=== PATIENT | male | born 1990 | race Caucasian/White ===

== ENCOUNTER 2017-01-20 02:58 | Emergency (ER) | payer BC, MEDICAID ==
[2017-01-20] MEDS ORDERED: Bacitracin Oint 1 GM U/D Packet TOP ONE (03:17)
[2017-01-20] MEDS ORDERED: Lidocaine 1% with EPINEPHrine 1:100,000 20 ML MDV INJECT ONE (03:17)
--- NOTE | 2017-01-20 04:57 | EDM.PDOC ---
ED HPI GENERAL MEDICAL PROBLEM - General Chief Complaint: Laceration Stated Complaint: LEFT ARM PAIN Time Seen by Provider: 01/20/17 03:06 Source of Information: Reports: Patient History Limitations: Reports: No Limitations - History of Present Illness INITIAL COMMENTS - FREE TEXT/NARRATIVE: HISTORY AND PHYSICAL: History of present illness: [27-year-old male presents to the emergency department complaining of laceration on the medial aspect of his left arm. For reasons that are unclear patient was sitting on a sink at 4 AM when it broke he fell and some broken porcelain lacerated his arm. He states his tetanus is up-to-date. He is able to use his elbow and move his wrist and hand normally. Small amount of bleeding. Review of systems: As per history of present illness and below otherwise all systems reviewed and negative. Past medical history: As per history of present illness and as reviewed below otherwise noncontributory. Surgical history: As per history of present illness and as reviewed below otherwise noncontributory. Social history: No reported history of drug or alcohol abuse. Family history: As per history of present illness and as reviewed below otherwise noncontributory. Physical exam: Well-appearing 27-year-old male alert and appropriate communicative and cooperative with an 8 cm superficial and subcutaneous laceration to the medial aspect of his left upper arm. No tendon or muscle involvement. Hemostatic. No gross contamination. No visible foreign body HEENT: Normocephalic, atraumatic, pupils normal and symmetrical, supple neck, no meningismus, normal color Lungs: Normal and symmetrical chest wall excursion bilateral with no tachypnea or increased work of breathing, grossly normal chest exam Heart: No tachycardia in triage Abdomen: Normal-appearing, nondistended, no visible mass or asymmetry Pelvis: Normal-appearing Genitourinary: Deferred Rectal exam: Deferred Extremities: Atraumatic, normal use and range of motion, no visible evidence of gross neurovascular compromise Neuro: Awake, alert, oriented. Normal and appropriate mental status. Cranial nerves grossly unremarkable. Motor function normal. Nonfocal neurologic exam. Diagnostics: [] Therapeutics: [Procedure, staple repair of 8 cm superficial and subcutaneous laceration medial aspect left upper arm. Patient lying on his stomach with his wrist down by his waist. One percent Lad[place] with epi was infused into the site of laceration. Wound was extensively irrigated with high-pressure jet sterile water irrigation by or. Closure performed with 10 piyush applied with good approximation and no complication. Patient tolerated well. Hemostatic, Dressing applied] Impression: [Laceration left upper arm Staple repair] Plan: [Signs and symptoms consistent with uncomplicated laceration. Staple repair performed after irrigation. Patient tolerated well no complications. He will follow-up with PCP in 2 days for wound check in 10 days for staple removal. Patient agrees with outpatient follow-up and strict return precautions given] Definitive disposition and diagnosis as appropriate pending reevaluation and review of above. Left Upper Arm Pain Score (Numeric/FACES): 8 - Related Data Allergies Allergy/AdvReac Type Severity Reaction Status Date / Time No Known Allergies Allergy Verified 01/20/17 03:25 Home Meds: Home Meds Dextroamphetamine/Amphetamine [Adderall] 0 01/20/17 [History] Emtricitabine/Tenofovir [Truvada 100 mg-150 mg Tablet] each PO DAILY 01/20/17 [ History] Raltegravir Potassium [Isentress] 0 DAILY 01/20/17 [History] Past Medical History Psychiatric History: Reports: ADHD Immunologic History: Reports: HIV - Infectious Disease History Infectious Disease History: Reports: HIV-Human Immunodeficiency Virus Social & Family History - Family History Family Medical History: Noncontributory - Tobacco Use Smoking Status *Q: Never Smoker - Caffeine Use Caffeine Use: Reports: None - Recreational Drug Use Recreational Drug Use: No ED ROS GENERAL - Review of Systems Review Of Systems: See Below (History of present illness) ED EXAM, SKIN/RASH Exam: See Below (History of present illness) Course - Vital Signs Last Recorded V/S: Last Vital Signs Temp 36.6 C 01/20/17 05:03 Pulse 74 01/20/17 05:03 Resp 20 01/20/17 05:03 BP 124/63 01/20/17 05:03 Pulse Ox 99 01/20/17 05:03 - Orders/Labs/Meds Meds: Medications Discontinued Medications Generic Name Dose Route Start Last Admin Trade Name Freq PRN Reason Stop Dose Admin Bacitracin 1 dose 01/20/17 03:17 01/20/17 04:13 Bacitracin Oint 1 Gm TOP 01/20/17 03:18 1 dose ONETIME ONE Administration Lidocaine/Epinephrine 20 ml 01/20/17 03:17 01/20/17 04:13 Xylocaine 1% With Epinephrine 1:100,000 INJECT 01/20/17 03:18 20 ml ONETIME ONE Administration Departure - Departure Time of Disposition: 04:54 Disposition: Home, Self-Care 01 Condition: Good Clinical Impression: Laceration of left upper arm - Discharge Information Instructions: Laceration Care, Adult Referrals: Sony Gonzales MD [Primary Care Provider] - Forms: ED Department Discharge Additional Instructions: Your laceration has been repaired with piyush. Follow-up with your doctor in 2 days for a wound check and in 10 days for staple removal. Take ibuprofen every 6 hours and Tylenol every 4 hours as needed for any discomfort. The aware of the possibility of occult foreign body in your wound. Do not sit on sinks in the future.
[2017-01-20 05:06] VITALS: BP 124/63
== END 2017-01-20 05:04 | disposition home or self-care (01) ==
LOC: MW.ED 02:58
DX: S41.112A Laceration without foreign body of left upper arm, initial encounter (principal); Z79.899 Other long term (current) drug therapy; W26.8XXA Contact with other sharp object(s), not elsewhere classified, initial encounter
CPT/HCPCS: 12004; 99282

== ENCOUNTER 2017-02-04 17:03 | Emergency (ER) | payer BC, MEDICAID ==
[2017-02-04 18:49] VITALS: BP 119/69
== END 2017-02-04 17:43 | disposition left against medical advice (07) ==
LOC: MW.ED 17:03
DX: Z53.21 Procedure and treatment not carried out due to patient leaving prior to being seen by health care provider (principal)

== ENCOUNTER 2019-01-03 14:13 | Emergency (ER) | payer MEDICAID ==
--- NOTE | 2019-01-03 14:25 | EDM.PDOC ---
ED HPI GENERAL MEDICAL PROBLEM - General Chief Complaint: Bite:Animal, Insect Stated Complaint: BEE IN EAR Time Seen by Provider: 01/03/19 14:16 Source of Information: Reports: Patient History Limitations: Reports: No Limitations - History of Present Illness INITIAL COMMENTS - FREE TEXT/NARRATIVE: History of present illness: []Patient arrived by ambulance after having a bug burrowing into his left ear. He states he's been trying to get it out. He is HIV positive, denies using any drugs and states that he is not suicidal and does not feel that anyone is trying to harm him. He feels safe at home, but states his neighbors are inconsiderate. Review of systems: As per history of present illness and below otherwise all systems reviewed and negative. Past medical history: As per history of present illness and as reviewed below otherwise noncontributory. Surgical history: As per history of present illness and as reviewed below otherwise noncontributory. Social history: No reported history of drug or alcohol abuse. Family history: As per history of present illness and as reviewed below otherwise noncontributory. Physical exam: General: Well developed, well nourished in NAD HEENT: Atraumatic, normocephalic, pupils reactive, negative for conjunctival pallor or scleral icterus, mucous membranes moist, throat clear, neck supple, nontender, trachea midline. Blood in the outside of his ear, EAC is clear TM is normal Lungs: Clear to auscultation, breath sounds equal bilaterally, chest nontender. Heart: S1S2, regular, negative for clicks, rubs, or JVD. Abdomen: NABS, Soft, nondistended, nontender. Negative for masses or hepatosplenomegaly. Negative for costovertebral tenderness. Pelvis: Stable nontender. Genitourinary: Deferred. Rectal: Deferred. Extremities: Atraumatic, negative for cords or calf pain. Neurovascular unremarkable. Neuro: Awake, alert, oriented. Cranial nerves II through XII unremarkable. Cerebellum unremarkable. Motor and sensory unremarkable throughout. Exam nonfocal. Skin:warm and dry Diagnostics: Therapeutics: ED Course: Impression: Prescriptions: Plan: Definitive disposition and diagnosis as appropriate pending reevaluation and review of above. - Related Data Allergies Allergy/AdvReac Type Severity Reaction Status Date / Time No Known Allergies Allergy Verified 01/03/19 14:14 Home Meds: Home Meds Dextroamphetamine/Amphetamine [Adderall Xr 30 mg Capsule] 700 mg PO DAILY [History] Dolutegravir Sodium [Tivicay] 50 mg PO DAILY 02/04/17 [History] Emtricitabine/Tenofovir [Truvada 200 mg-300 mg Tablet] 1 tab PO DAILY 02/04/17 [ History] buPROPion [Wellbutrin] 500 mg PO DAILY 02/21/18 [History] Past Medical History - Past Health History Medical/Surgical History: Denies Medical/Surgical History HEENT History: Reports: Impaired Vision Psychiatric History: Reports: ADHD Immunologic History: Reports: HIV - Infectious Disease History Infectious Disease History: Reports: HIV-Human Immunodeficiency Virus - Past Surgical History HEENT Surgical History: Reports: None Social & Family History - Family History Family Medical History: Noncontributory - Caffeine Use Caffeine Use: Reports: None ED ROS GENERAL - Review of Systems Review Of Systems: See Below ED EXAM, ANIMAL BITE - Physical Exam Exam: See Below Departure - Departure Time of Disposition: 14:25 Disposition: Home, Self-Care 01 Condition: Good Clinical Impression: Encounter for medical screening examination - Discharge Information *PRESCRIPTION DRUG MONITORING PROGRAM REVIEWED*: No *COPY OF PRESCRIPTION DRUG MONITORING REPORT IN PATIENT MEDINA: No Additional Instructions: The following information is given to patients seen in the emergency department who are being discharged to home. This information is to outline your options for follow-up care. We provide all patients seen in our emergency department with a follow-up referral. The need for follow-up, as well as the timing and circumstances, are variable depending upon the specifics of your emergency department visit. If you don't have a primary care physician on staff, we will provide you with a referral. We always advise you to contact your personal physician following an emergency department visit to inform them of the circumstance of the visit and for follow-up with them and/or the need for any referrals to a consulting specialist. The emergency department will also refer you to a specialist when appropriate. This referral assures that you have the opportunity for follow-up care with a specialist. All of these measure are taken in an effort to provide you with optimal care, which includes your follow-up. Under all circumstances we always encourage you to contact your private physician who remains a resource for coordinating your care. When calling for follow-up care, please make the office aware that this follow-up is from your recent emergency room visit. If for any reason you are refused follow-up, please contact the [facility] Emergency Department at and asked to speak to the emergency department charge nurse. Take meds as directed, follow up with your primary care physician, return to ER if symptoms worsen or change. [facility] [place] [id number]
[2019-01-03 14:57] VITALS: BP 142/92; PULSE 108
== END 2019-01-03 14:33 | disposition home or self-care (01) ==
LOC: MW.ED 14:13
DX: T16.2XXA Foreign body in left ear, initial encounter (principal); B20 Human immunodeficiency virus [HIV] disease; F90.9 Attention-deficit hyperactivity disorder, unspecified type; Z79.899 Other long term (current) drug therapy; X58.XXXA Exposure to other specified factors, initial encounter
CPT/HCPCS: 99283